=== PATIENT | female | born 1955 | race African-American/Black ===

== ENCOUNTER 2017-11-24 06:25 | Inpatient (IN) | payer MEDICARE ==
[~2017-11-24] VITALS: Ht 165.1 cm; Wt 77.4 kg
[~2017-11-24 06:25] MED LIST: AML5T PO
[2017-11-24 07:31] LABS: Basophils # (auto) 0 uL; Eosinophils # (auto) 0 uL; Hemoglobin 12.9 g/dL (12.2-16.2); Lymphocytes # (auto) 1.3 uL; Monocytes # (auto) 0.9 uL; Red Cell Distribution Width 13.9 % (11.8-14.3)
[2017-11-24 07:33] LABS: Basophils % (auto) 0.3 % (0.0-2.0); Eosinophils % (auto) 0.3 % (0.0-7.0); Hematocrit 39.3 % (36.0-46.0); Lymphocytes % (auto) 18.7 % (10.0-50.0); Mean Corpuscular Hgb Conc. 32.7 g/dL (32.0-36.0); Mean Corpuscular Volume 79.5 fL (80.0-100.0); Monocytes % (auto) 12.9 % (0.0-12.0); Neutrophils # (auto) 4.5 uL; Neutrophils % (auto) 67.8 % (37.0-80.0); Nucleated Red Blood Cells % 0.1 %; Platelet Count (auto) 400 10^3/uL (140-450); Red Blood Cells 4.95 10^6/uL (4.0-5.20); White Blood Cell 6.7 10^3/uL (4.4-10.8)
[2017-11-24 08:03] LABS: Albumin 3.2 g/dL (3.4-5.0); BUN/Creatinine Ratio 14.3; Bilirubin, Total 0.6 mg/dL (0.2-1.0); Calcium 9.4 mg/dL (8.5-10.1); Potassium 3.3 mmol/L (3.5-5.1); Total Protein 8.2 g/dL (6.4-8.2)
[2017-11-24] MEDS: SODIUM CHLORIDE 0.9% 1,000 ML IV SCH ×2 (12:42→21:05)
[2017-11-24] MEDS ORDERED: NITROGLYCERIN 0.4 MG SL TAB SL PRN (12:45)
[2017-11-24] MEDS ORDERED: cefTRIAXone 1GM/10ml IVPUSH 10 ML IV ONE (12:45)
[2017-11-24] MEDS ORDERED: SODIUM CHLORIDE 0.9% 2,000 ML IV ONE (12:45)
[2017-11-24] MEDS ORDERED: ENALAPRILAT 1.25 MG/ML-1ML VIAL IV PRN (12:45)
[2017-11-24] MEDS ORDERED: ONDANSETRON HCL 4 MG/2 ML VIAL IV PRN (12:45)
[2017-11-24] MEDS ORDERED: DEXTROSE (50%) 50ML SYRG IV PRN (12:45)
[2017-11-24] MEDS ORDERED: MORPHINE SULFATE 8mg/ml INJ SDV IV PRN (12:45)
[2017-11-24] MEDS ORDERED: POTASSIUM CHL 20MEQ/100ML 100 ML IV ONE (13:00)
[2017-11-24 13:28] LABS: % Iron Saturation 13.2 % (15-50)
[2017-11-24] MEDS: metroNIDAZOLE 500MG/100ML 100 ML IV SCH ×2 (14:26→21:57)
[2017-11-24 14:46] LABS: Urine Bacteria NONE SEEN /hpf (None Seen); Urine Blood Negative /uL (Negative); Urine Mucus MANY (None Seen); Urine Specific Gravity 1.028 (1.001-1.035); Urine WBC 8 /hpf (0 - 5)
[2017-11-24 15:30] VITALS: BP 131/65
[2017-11-24] MEDS ORDERED: AMLO5CAP PO (15:36)
[2017-11-24] MEDS ORDERED: PANT1INJ3 IV (15:36)
[2017-11-24] MEDS ORDERED: ROSU20TA14 PO (15:36)
[2017-11-24] MEDS ORDERED: ONDA4SOL2 PO (15:36)
[2017-11-24 16:00] VITALS: BP 131/65
[2017-11-24] MEDS: InsuLIN REG 1unit/0.01ml Soln (100units/ml) SC SCH ×2 (17:22→21:57)
[2017-11-24] MEDS: ACCU-CHEK COMFORT CURVE STRIP VI SCH ×2 (17:22→21:58)
[2017-11-24 22:00] VITALS: BP 149/70
[2017-11-25 04:50] VITALS: BP 132/71
[2017-11-25] MEDS: SODIUM CHLORIDE 0.9% 1,000 ML IV SCH ×2 (05:34→13:42)
[2017-11-25 05:51] LABS: Basophils # (auto) 0 uL; Lymphocytes # (auto) 2.2 uL; Monocytes # (auto) 0.8 uL; Neutrophils % (auto) 44.4 % (37.0-80.0); Nucleated Red Blood Cells % 0.1 %
[2017-11-25 05:54] LABS: Basophils % (auto) 0.2 % (0.0-2.0); Eosinophils # (auto) 0 uL; Eosinophils % (auto) 0.8 % (0.0-7.0); Hematocrit 32.6 % (36.0-46.0); Hemoglobin 10.6 g/dL (12.2-16.2); Lymphocytes % (auto) 39.7 % (10.0-50.0); Mean Corpuscular Hemoglobin 26.3 pg (28.0-32.0); Mean Corpuscular Hgb Conc. 32.6 g/dL (32.0-36.0); Mean Corpuscular Volume 80.5 fL (80.0-100.0); Monocytes % (auto) 14.9 % (0.0-12.0); Neutrophils # (auto) 2.4 uL; Platelet Count (auto) 303 10^3/uL (140-450); Red Blood Cells 4.04 10^6/uL (4.0-5.20); Red Cell Distribution Width 14.2 % (11.8-14.3); White Blood Cell 5.5 10^3/uL (4.4-10.8)
[2017-11-25] MEDS: InsuLIN REG 1unit/0.01ml Soln (100units/ml) SC SCH ×2 (05:54→12:00)
[2017-11-25] MEDS: ACCU-CHEK COMFORT CURVE STRIP VI SCH ×2 (05:55→12:00)
[2017-11-25] MEDS: metroNIDAZOLE 500MG/100ML 100 ML IV SCH (05:55)
[2017-11-25 06:31] LABS: Albumin 2.6 g/dL (3.4-5.0); Bilirubin, Total 0.6 mg/dL (0.2-1.0); Calcium 8.5 mg/dL (8.5-10.1); Potassium 3.4 mmol/L (3.5-5.1); Total Protein 6.7 g/dL (6.4-8.2)
[2017-11-25 09:00] VITALS: BP 132/65
[2017-11-25] MEDS ORDERED: cefTRIAXone 1GM/10ml IVPUSH 10 ML IV SCH (09:00)
[2017-11-25 13:00] VITALS: BP 149/71
== END 2017-11-25 15:40 | disposition home or self-care (01) | DRG 389 ==
LOC: ER 06:32 → TELE 06:33 → TELE-WESTW 15:05
PROVIDERS: ADMIT Internal Medicine; ATTEND Family Medicine
DX: K56.609 Unspecified intestinal obstruction, unspecified as to partial versus complete obstruction (principal); E44.0 Moderate protein-calorie malnutrition; C25.9 Malignant neoplasm of pancreas, unspecified; I11.0 Hypertensive heart disease with heart failure; I50.9 Heart failure, unspecified; E87.6 Hypokalemia; E11.9 Type 2 diabetes mellitus without complications; F31.9 Bipolar disorder, unspecified; E78.5 Hyperlipidemia, unspecified; Z82.49 Family history of ischemic heart disease and other diseases of the circulatory system; Z85.07 Personal history of malignant neoplasm of pancreas; Z90.49 Acquired absence of other specified parts of digestive tract
CPT/HCPCS: 36415; 71250; 74176; 80053; 81001; 82150; 82962; 83036; 83540; 83550; 83605; 83690; 84443; 85025; 87040; 96361; 96374; J3480; J3490

== ENCOUNTER 2018-03-14 12:15 | Observation (INO) | payer MEDICARE, MEDICAID ==
[~2018-03-14] VITALS: Ht 165.1 cm; Wt 55.8 kg
[~2018-03-14 12:15] MED LIST changes: -AML5T PO; +AMLO5CAP PO; +ONDA4SOL2 PO; +PANT1INJ3 IV; +ROSU20TA14 PO
[2018-03-14 14:55] LABS: Basophils # (auto) 0 uL; Eosinophils # (auto) 0.1 uL; Lymphocytes # (auto) 2.2 uL; Mean Corpuscular Volume 78.5 fL (80.0-100.0); Monocytes # (auto) 0.8 uL; Neutrophils # (auto) 2.3 uL; Nucleated Red Blood Cells % 0.2 %; White Blood Cell 5.4 10^3/uL (4.4-10.8)
[2018-03-14 14:57] LABS: Basophils % (auto) 0.2 % (0.0-2.0); Eosinophils % (auto) 1.7 % (0.0-7.0); Hemoglobin 9.8 g/dL (12.2-16.2); Lymphocytes % (auto) 41.2 % (10.0-50.0); Mean Corpuscular Hemoglobin 26.4 pg (28.0-32.0); Mean Corpuscular Hgb Conc. 33.7 g/dL (32.0-36.0); Monocytes % (auto) 14.1 % (0.0-12.0); Neutrophils % (auto) 42.8 % (37.0-80.0); Platelet Count (auto) 273 10^3/uL (140-450); Red Blood Cells 3.69 10^6/uL (4.0-5.20); Red Cell Distribution Width 14.3 % (11.8-14.3)
[2018-03-14] MEDS ORDERED: cefTRIAXone 1GM/10ml IVPUSH 10 ML IV ONE (15:00)
[2018-03-14] MEDS ORDERED: SODIUM CHLORIDE 0.9% 1,000 ML IV ONE (15:00)
[2018-03-14 15:13] LABS: Albumin 2.8 g/dL (3.4-5.0); BUN/Creatinine Ratio 14.5; Bilirubin, Total 0.6 mg/dL (0.2-1.0); Calcium 8.9 mg/dL (8.5-10.1); INR 1.1 (0.9-1.15); Magnesium 2.3 mg/dL (1.6-2.6); Potassium 3.4 mmol/L (3.5-5.1); Prothrombin Time 11.7 sec (9.27-12.13); Total Protein 7.6 g/dL (6.4-8.2)
[2018-03-14] MEDS ORDERED: SODIUM CHLORIDE 0.9% 1,000 ML IVB ONE (15:41)
[2018-03-14] MEDS ORDERED: POTASSIUM CHL 20 Meq TABLET PO ONE (15:45)
[2018-03-14 16:32] VITALS: BP 101/74
== END 2018-03-14 18:52 | disposition home or self-care (01) | DRG 603 ==
LOC: ER 12:22 → OVERFLOW 12:23 → ER 18:52
PROVIDERS: ADMIT Family Medicine; ATTEND Family Medicine
DX: L03.311 Cellulitis of abdominal wall (principal); C25.9 Malignant neoplasm of pancreas, unspecified; I11.0 Hypertensive heart disease with heart failure; I50.9 Heart failure, unspecified; E78.5 Hyperlipidemia, unspecified; K21.9 Gastro-esophageal reflux disease without esophagitis; Z92.21 Personal history of antineoplastic chemotherapy
CPT/HCPCS: 36415; 71045; 74176; 80053; 83735; 85025; 85610; 85730; 96361; 96374; 99285; G0378; J0696

== ENCOUNTER 2018-03-27 11:45 | Emergency (ER) | payer MEDICARE, MEDICAID ==
[~2018-03-27] VITALS: Ht 167.6 cm; Wt 54.4 kg
[2018-03-27] MEDS ORDERED: SODIUM CHLORIDE 0.9% 1,000 ML IV ONE (12:42)
[2018-03-27 13:23] LABS: Basophils # (auto) 0 uL; Eosinophils # (auto) 0 uL; Eosinophils % (auto) 0.8 % (0.0-7.0); Hemoglobin 8.2 g/dL (12.2-16.2); Lymphocytes # (auto) 1.2 uL; Monocytes # (auto) 0.1 uL; Monocytes % (auto) 1.4 % (0.0-12.0); Platelet Count (auto) 243 10^3/uL (140-450); White Blood Cell 4.6 10^3/uL (4.4-10.8)
[2018-03-27 13:25] LABS: Basophils % (auto) 0.8 % (0.0-2.0); Hematocrit 24.6 % (36.0-46.0); Lymphocytes % (auto) 26.6 % (10.0-50.0); Mean Corpuscular Hemoglobin 26.6 pg (28.0-32.0); Mean Corpuscular Hgb Conc. 33.6 g/dL (32.0-36.0); Mean Corpuscular Volume 79.3 fL (80.0-100.0); Neutrophils # (auto) 3.2 uL; Neutrophils % (auto) 70.4 % (37.0-80.0); Nucleated Red Blood Cells % 0.5 %; Red Cell Distribution Width 15.6 % (11.8-14.3)
[2018-03-27 13:52] VITALS: BP 113/57
[2018-03-27 15:02] LABS: Chloride 107 mmol/L (98-107); Sodium 141 mmol/L (136-145)
[2018-03-27 15:05] LABS: Urine Bacteria FEW /hpf (None Seen); Urine Blood Negative /uL (Negative); Urine Hyaline Cast FEW /lpf (0 - 2); Urine Mucus FEW (None Seen); Urine Specific Gravity 1.011 (1.001-1.035); Urine WBC 30 /hpf (0 - 5)
[2018-03-27 15:07] LABS: Albumin 3.1 g/dL (3.4-5.0); Alkaline Phosphatase 60 U/L (45-117); Anion Gap 12 (5-15); Aspartate Aminotransferase 90 U/L (15-37); Blood Urea Nitrogen 6 mg/dL (7-18); Calcium 8.2 mg/dL (8.5-10.1); Carbon Dioxide 22 mmol/L (21-32); GFR African American 114 mL/min; GFR Non-African American 94 mL/min; Glucose 88 mg/dL (74-106); Magnesium 2.1 mg/dL (1.6-2.6)
[2018-03-27 15:18] LABS: Alanine Aminotransferase 90 U/L (13-56); Bilirubin, Total 0.8 mg/dL (0.2-1.0); Total Protein 7.1 g/dL (6.4-8.2)
== END 2018-03-27 15:06 | disposition home or self-care (01) ==
LOC: EDBD 11:45 → ER 11:45 → EDUNIT# 11:45 → ER 15:06
DX: R62.7 Adult failure to thrive (principal); I11.0 Hypertensive heart disease with heart failure; I50.9 Heart failure, unspecified; Z90.49 Acquired absence of other specified parts of digestive tract; Z85.07 Personal history of malignant neoplasm of pancreas
CPT/HCPCS: 36415; 70450; 80053; 81001; 83735; 84484; 85025; 96360; 96361; 99285; J7030

== ENCOUNTER 2018-04-19 00:13 | Inpatient (IN) | payer MEDICARE, MEDICAID ==
[~2018-04-19] VITALS: Ht 165.1 cm; Wt 55.3 kg
[2018-04-19 02:49] LABS: Basophils # (auto) 0.1 uL; Basophils % (auto) 2.9 % (0.0-2.0); Eosinophils # (auto) 0.1 uL; Eosinophils % (auto) 1.6 % (0.0-7.0); Hemoglobin 9.1 g/dL (12.2-16.2); Lymphocytes % (auto) 41.8 % (10.0-50.0); Mean Corpuscular Hemoglobin 27.5 pg (28.0-32.0); Mean Corpuscular Hgb Conc. 31.2 g/dL (32.0-36.0); Mean Corpuscular Volume 88.2 fL (80.0-100.0); Monocytes # (auto) 0.7 uL; Monocytes % (auto) 14.9 % (0.0-12.0); Neutrophils # (auto) 1.8 uL; Neutrophils % (auto) 38.8 % (37.0-80.0); Nucleated Red Blood Cells % 0.1 %; Platelet Count (auto) 709 10^3/uL (140-450); Red Blood Cells 3.29 10^6/uL (4.0-5.20); White Blood Cell 4.7 10^3/uL (4.4-10.8)
[2018-04-19 02:51] LABS: Red Cell Distribution Width 27.2 % (11.8-14.3)
[2018-04-19 03:05] LABS: Alanine Aminotransferase 75 U/L (13-56); Albumin 3.5 g/dL (3.4-5.0); Anion Gap 15 (5-15); Aspartate Aminotransferase 38 U/L (15-37); BUN/Creatinine Ratio 6.9; Blood Urea Nitrogen 4 mg/dL (7-18); Carbon Dioxide 22 mmol/L (21-32); Chloride 91 mmol/L (98-107); GFR African American 135 mL/min; GFR Non-African American 112 mL/min; Glucose 65 mg/dL (74-106); Potassium 3.9 mmol/L (3.5-5.1); Sodium 128 mmol/L (136-145)
[2018-04-19 03:10] LABS: Alkaline Phosphatase 65 U/L (45-117); Bilirubin, Total 1.3 mg/dL (0.2-1.0); Total Protein 7.4 g/dL (6.4-8.2)
[2018-04-19] MEDS ORDERED: HYDROmorphone HCL 2 MG/ML VL IV ONE (03:45)
[2018-04-19] MEDS ORDERED: ONDANSETRON HCL 4 MG/2 ML VIAL IV ONE (03:45)
[2018-04-19] MEDS ORDERED: SODIUM CHLORIDE 0.9% 1,000 ML IV ONE ×2 (03:45→07:30)
[2018-04-19 05:26] LABS: Urine Bacteria FEW /hpf (None Seen); Urine Blood Negative /uL (Negative); Urine Hyaline Cast FEW /lpf (0 - 2); Urine Mucus FEW (None Seen); Urine WBC 5 /hpf (0 - 5)
[2018-04-19] MEDS ORDERED: LORazepam 0.5 MG TAB PO PRN (07:30)
[2018-04-19] MEDS ORDERED: MORPHINE SULFATE 4 MG/ML SYR/VIAL IV PRN (07:30)
[2018-04-19] MEDS ORDERED: METOCLOPRAMIDE HCL 5MG/ml INJ 2ml VIAL IV PRN (07:30)
[2018-04-19] MEDS ORDERED: HYDROcodone-ACET 5/325MG TAB PO PRN (07:30)
[2018-04-19] MEDS ORDERED: ACETAMINOPHEN 500 MG TAB PO PRN (07:30)
[2018-04-19] MEDS: cefTRIAXone 1GM/50ML D5W 50 ML IV SCH (09:21)
[2018-04-19] MEDS ORDERED: DEXAMETHASONE 4 MG TAB PO SCH (10:00)
[2018-04-19 10:20] VITALS: BP 102/49
[2018-04-19] MEDS: PANTOPRAZOLE 40 MG/10 ML VIAL IV SCH (11:29)
[2018-04-19 13:00] VITALS: BP 102/49
[2018-04-19] MEDS ORDERED: IOHEXOL 300 MG/ML 100ML BOTTLE IJ ONE (16:56)
[2018-04-19 17:00] VITALS: BP 116/73
[2018-04-19] MEDS: D5W/ SOD CHL 0.9%/KCL 20MEQ 1,000 ML IV SCH (18:00)
[2018-04-19 21:58] VITALS: BP 122/71
[2018-04-19] MEDS: CLINDAMYCIN 600MG IV 50 ML IV SCH (22:55)
[2018-04-20 05:09] VITALS: BP 136/70
[2018-04-20 05:57] LABS: Basophils # (auto) 0 uL; Eosinophils # (auto) 0 uL; Lymphocytes # (auto) 0.7 uL; Nucleated Red Blood Cells % 0.2 %
[2018-04-20 06:00] LABS: Basophils % (auto) 0.2 % (0.0-2.0); Hematocrit 24.5 % (36.0-46.0); Hemoglobin 7.9 g/dL (12.2-16.2); Mean Corpuscular Hemoglobin 27.8 pg (28.0-32.0); Mean Corpuscular Hgb Conc. 32.3 g/dL (32.0-36.0); Mean Corpuscular Volume 85.9 fL (80.0-100.0); Monocytes # (auto) 0.5 uL; Monocytes % (auto) 14.6 % (0.0-12.0); Neutrophils % (auto) 63.2 % (37.0-80.0); Platelet Count (auto) 575 10^3/uL (140-450); Red Blood Cells 2.85 10^6/uL (4.0-5.20); White Blood Cell 3.1 10^3/uL (4.4-10.8)
[2018-04-20] MEDS: CLINDAMYCIN 600MG IV 50 ML IV SCH ×3 (06:06→22:38)
[2018-04-20] MEDS: D5W/ SOD CHL 0.9%/KCL 20MEQ 1,000 ML IV SCH ×2 (06:12→19:25)
[2018-04-20 06:27] LABS: BUN/Creatinine Ratio 3.8; Calcium 8.1 mg/dL (8.5-10.1)
[2018-04-20 06:32] LABS: Red Cell Distribution Width 28.7 % (11.8-14.3)
[2018-04-20 08:42] VITALS: BP 111/66
[2018-04-20] MEDS: PANTOPRAZOLE 40 MG/10 ML VIAL IV SCH (09:38)
[2018-04-20] MEDS: ENOXAPARIN SOD 40 MG/0.4 ML SYRINGE SC SCH (09:39)
[2018-04-20] MEDS: cefTRIAXone 1GM/50ML D5W 50 ML IV SCH (09:39)
[2018-04-20 12:44] VITALS: BP 105/52
[2018-04-20 16:31] VITALS: BP 100/66
[2018-04-20 22:00] VITALS: BP 116/68
[2018-04-21 05:33] VITALS: BP 110/51
[2018-04-21 06:47] LABS: Basophils # (auto) 0 uL; Eosinophils # (auto) 0.1 uL; Eosinophils % (auto) 1.1 % (0.0-7.0); Hemoglobin 8.1 g/dL (12.2-16.2); Monocytes # (auto) 0.8 uL; White Blood Cell 4.8 10^3/uL (4.4-10.8)
[2018-04-21 06:50] LABS: Basophils % (auto) 0.8 % (0.0-2.0); Hematocrit 24.2 % (36.0-46.0); Lymphocytes # (auto) 1.9 uL; Lymphocytes % (auto) 39.5 % (10.0-50.0); Mean Corpuscular Hemoglobin 28.6 pg (28.0-32.0); Mean Corpuscular Hgb Conc. 33.5 g/dL (32.0-36.0); Mean Corpuscular Volume 85.6 fL (80.0-100.0); Monocytes % (auto) 16.4 % (0.0-12.0); Neutrophils % (auto) 42.2 % (37.0-80.0); Nucleated Red Blood Cells % 0.3 %; Platelet Count (auto) 549 10^3/uL (140-450); Red Blood Cells 2.83 10^6/uL (4.0-5.20)
[2018-04-21 07:00] LABS: Red Cell Distribution Width 28.4 % (11.8-14.3)
[2018-04-21] MEDS: CLINDAMYCIN 600MG IV 50 ML IV SCH (07:50)
[2018-04-21 08:00] VITALS: BP 120/67
[2018-04-21] MEDS: D5W/ SOD CHL 0.9%/KCL 20MEQ 1,000 ML IV SCH (08:45)
[2018-04-21 09:00] VITALS: BP 120/67
[2018-04-21] MEDS: cefTRIAXone 1GM/50ML D5W 50 ML IV SCH (10:10)
[2018-04-21] MEDS: PANTOPRAZOLE 40 MG/10 ML VIAL IV SCH (10:10)
[2018-04-21] MEDS: ENOXAPARIN SOD 40 MG/0.4 ML SYRINGE SC SCH (10:11)
[2018-04-21] MEDS ORDERED: CEPH-37 PO (10:34)
== END 2018-04-21 14:16 | disposition home health service (06) | DRG 436 ==
LOC: ER 00:13 → OVERFLOW 00:14 → EAST 10:09
PROVIDERS: ADMIT Nurse Practitioner Family; ATTEND Internal Medicine
DX: C25.9 Malignant neoplasm of pancreas, unspecified (principal); E87.1 Hypo-osmolality and hyponatremia; E44.0 Moderate protein-calorie malnutrition; T81.30XA Disruption of wound, unspecified, initial encounter; D47.3 Essential (hemorrhagic) thrombocythemia; D64.9 Anemia, unspecified; B96.20 Unspecified Escherichia coli [E. coli] as the cause of diseases classified elsewhere; Z68.20 Body mass index [BMI] 20.0-20.9, adult; E86.0 Dehydration; G62.0 Drug-induced polyneuropathy; I11.0 Hypertensive heart disease with heart failure; Z82.49 Family history of ischemic heart disease and other diseases of the circulatory system; Z80.3 Family history of malignant neoplasm of breast; I50.9 Heart failure, unspecified; T45.1X5A Adverse effect of antineoplastic and immunosuppressive drugs, initial encounter; Y92.89 Other specified places as the place of occurrence of the external cause; Z16.23 Resistance to quinolones and fluoroquinolones; Z90.49 Acquired absence of other specified parts of digestive tract
CPT/HCPCS: 36415; 74022; 74177; 80048; 80053; 81001; 84484; 85025; 87077; 87081; 87086; 87186; 87205; 93005; 94761; 96374; C9113; G0378; J0696; J2405; J3490